=== PATIENT | male | born 1975 | race Caucasian/White ===

== ENCOUNTER 2021-11-21 15:41 | Emergency (ER) | payer MEDICAID ==
[~2021-11-21] VITALS: Ht 185.4 cm; Wt 100.7 kg
[2021-11-21] MEDS ORDERED: VENTOLIN HFA18 GM INH (18:05)
== END 2021-11-21 18:20 | disposition home or self-care (01) ==
LOC: ED 15:41
DX: U07.1 COVID-19 (principal); J20.5 Acute bronchitis due to respiratory syncytial virus
CPT/HCPCS: 71046; 94640; 94664; 99285-25; C9803; U0003

== ENCOUNTER 2022-01-30 15:15 | Emergency (ER) | payer MEDICAID ==
[~2022-01-30] VITALS: Ht 185.4 cm; Wt 100.7 kg
[~2022-01-30 15:15] MED LIST: VENTOLIN HFA18 GM INH
== END 2022-01-30 17:24 | disposition home or self-care (01) ==
LOC: ED 15:15
DX: M54.50 Low back pain, unspecified (principal)
CPT/HCPCS: 99283; A9270

== ENCOUNTER 2022-11-01 20:34 | Emergency (ER) | payer MEDICAID ==
[~2022-11-01] VITALS: Ht 185.4 cm; Wt 108.4 kg
== END 2022-11-01 22:02 | disposition home or self-care (01) ==
LOC: ED 20:34
DX: M25.562 Pain in left knee (principal); G89.29 Other chronic pain
CPT/HCPCS: 73560; 99283-25

== ENCOUNTER 2022-12-15 10:59 | Emergency (ER) | payer OTHER, MEDICAID ==
[~2022-12-15] VITALS: Ht 185.4 cm; Wt 108.4 kg
--- OUTSIDE RECORDS SUMMARY | 2022-12-15 11:08 | XMS ---
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 - Patient with suicidal and/or homicidal ideations eloped. - Patient eloped with IV in place. Details: Patient LWBS. CRITERIA MET - [facility] - 2 Visits in 30 Days CARE PROVIDERS MARIELY CHAN [facility] 09/11/2022-Current PHONE: Unknown Sugar has no Care Guidelines for this patient. Bi VISIT COUNT (12 MO.) [address] [place] [address] TOTAL 5 NOTE: Visits indicate total known visits. ED/UCC VISIT TRACKING (12 MO.) 12/15/2022 11:01 [facility] [place] TYPE: Emergency COMPLAINT: - POSS STROKE 11/18/2022 00:31 [facility] [place] TYPE: Emergency COMPLAINT: - SOB,COUGH,ABD PAIN DIAGNOSES: - Hemorrhage of anus and rectum - COVID-19 11/01/2022 20:34 [facility] [place] TYPE: Emergency COMPLAINT: - LT KNEE PAIN/NO INJ DIAGNOSES: - Other chronic pain - Pain in left knee 07/23/2022 17:40 [facility] [place] TYPE: Emergency COMPLAINT: - BACK PAIN 01/30/2022 15:15 [facility] [place] TYPE: Emergency COMPLAINT: - BACK PAIN DIAGNOSES: - Pain in thoracic spine - Low back pain, unspecified INPATIENT VISIT TRACKING (12 MO.) No inpatient visits to display in this time frame [id number]
== END 2022-12-15 13:05 | disposition home or self-care (01) ==
LOC: ED 10:59
DX: S83.92XA Sprain of unspecified site of left knee, initial encounter (principal); K92.2 Gastrointestinal hemorrhage, unspecified; R06.4 Hyperventilation; F41.9 Anxiety disorder, unspecified; W19.XXXA Unspecified fall, initial encounter
CPT/HCPCS: 36415; 70450; 73560; 80053; 85025; 99285-25

== ENCOUNTER 2023-10-08 00:33 | Emergency (ER) | payer OTHER ==
[~2023-10-08] VITALS: Ht 185.4 cm; Wt 114.7 kg
[2023-10-08] MEDS ORDERED: AMOX TR-K CLV1 EAC1 PO (01:12)
[2023-10-08 01:35] VITALS: BP 130/82
== END 2023-10-08 01:35 | disposition home or self-care (01) ==
LOC: ED 00:33
DX: K04.7 Periapical abscess without sinus (principal); K02.9 Dental caries, unspecified
CPT/HCPCS: A9270

== ENCOUNTER 2023-11-02 10:00 | Emergency (ER) | payer OTHER ==
[~2023-11-02] VITALS: Ht 185.4 cm; Wt 109.2 kg
[~2023-11-02 10:00] MED LIST changes: +AMOX TR-K CLV1 EAC1 PO
--- OUTSIDE RECORDS SUMMARY | 2023-11-02 10:03 | XMS ---
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 - Patient eloped before treatment completed. - Patient with suicidal and/or homicidal ideations eloped. Details: Patient LWBS. CRITERIA MET - [facility] - 2 Visits in 30 Days CARE PROVIDERS MARIELY CHAN [facility] 09/11/2023-Current PHONE: [phone] Sugar has no Care Guidelines for this patient. Bi VISIT COUNT (12 MO.) [address] [place] [address] TOTAL 4 NOTE: Visits indicate total known visits. ED/UCC VISIT TRACKING (12 MO.) 11/02/2023 10:02 [facility] [place] TYPE: Emergency COMPLAINT: - RECTAL ISSUE 10/08/2023 00:33 [facility] [place] TYPE: Emergency COMPLAINT: - DENTAL PAIN DIAGNOSES: - Dental caries, unspecified - Other specified disorders of teeth and supporting structures - Periapical abscess without sinus 12/15/2022 11:01 [facility] [place] TYPE: Emergency COMPLAINT: - POSS STROKE DIAGNOSES: - Anxiety disorder, unspecified - Gastrointestinal hemorrhage, unspecified - Hyperventilation - Pain in left knee - Sprain of unspecified site of left knee, initial encounter - Unspecified fall, initial encounter 11/18/2022 00:31 [facility] [place] TYPE: Emergency COMPLAINT: - SOB,COUGH,ABD PAIN DIAGNOSES: - COVID-19 - Hemorrhage of anus and rectum INPATIENT VISIT TRACKING (12 MO.) No inpatient visits to display in this time frame [email or web address]
[2023-11-02] MEDS ORDERED: MORPHINE SULFATE 4 MG/ML VIAL IV ONE (10:15)
[2023-11-02] MEDS ORDERED: ondansetron HCL 4 MG/2 ML VIAL IV ONE (10:15)
[2023-11-02] MEDS ORDERED: SODIUM CHLORIDE 0.9% 1,000 ML IV ONE (10:15)
[2023-11-02 10:33] LABS: EOSINOPHILS 3.4 % (0-6); HEMATOCRIT 42.6 % (35.0-50.0); HEMOGLOBIN 14.2 g/dL (12.0-18.0); LYMPHOCYTES 37.9 % (24-44); MCH 29.8 (27-36); MCHC 33.4 g/dl (30-36); MCV 89.2 fl (81-99); MONOCYTES 6.6 % (0-12); NEUTROPHILS 51.1 % (39-80); PLATELET COUNT 401 K/uL (140-440); RBC 4.77 M/ul (4.3-5.7); RDW 12.8 (10.5-15.0)
[2023-11-02 10:48] LABS: ALBUMIN 3.7 g/dL (3.4-5.0); ALBUMIN/GLOBULIN RATIO 0.97 (1.1-2.4); ANION GAP 10.1 (7-21); BILIRUBIN, TOTAL 0.2 ng/dL (0.2-1.0); BUN/CREATININE RATIO 10.46 (6.0-28.6); CALCIUM 9.1 mg/dL (8.5-10.1); CREATININE, SERUM 0.86 mg/dL (0.70-1.30); POTASSIUM 4.1 mmol/L (3.5-5.1); PROTEIN, TOTAL 7.5 g/dL (6.4-8.2)
[2023-11-02 10:49] LABS: BILIRUBIN, URINE NEGATIVE (negative); BLOOD/HGB, URINE NEGATIVE (Negative); KETONE, URINE NEGATIVE (Negative); LEUK ESTERASE, URINE NEGATIVE (negative); NITRITE, URINE NEGATIVE (negative); PH, URINE 7.5 (5-7)
[2023-11-02] MEDS ORDERED: FIBER500 MG PO (11:43)
[2023-11-02 12:00] VITALS: BP 120/78
== END 2023-11-02 12:00 | disposition home or self-care (01) ==
LOC: ED 10:00
PROVIDERS: Family Medicine
DX: K57.30 Diverticulosis of large intestine without perforation or abscess without bleeding (principal); K59.00 Constipation, unspecified; Z85.038 Personal history of other malignant neoplasm of large intestine; N40.0 Benign prostatic hyperplasia without lower urinary tract symptoms
CPT/HCPCS: 36415; 74177; 80053; 81003; 83690; 85025; 96375; 99284-25; J2270; J2405; J7030; Q9967

== ENCOUNTER 2023-12-19 00:55 | Emergency (ER) | payer SELFPAY ==
[~2023-12-19] VITALS: Ht 185.4 cm; Wt 107.0 kg
[~2023-12-19 00:55] MED LIST changes: +CELEBREX200 MG PO; +FIBER500 MG PO
--- OUTSIDE RECORDS SUMMARY | 2023-12-19 01:02 | XMS ---
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 - Patient eloped before treatment completed. - Patient with suicidal and/or homicidal ideations eloped. Details: Patient LWBS. CRITERIA MET - [facility] - 2 Visits in 30 Days CARE PROVIDERS There are no care providers on record at this time. Sugar has no Care Guidelines for this patient. E.Leatha. VISIT COUNT (12 MO.) 4 [facility]. TOTAL 4 NOTE: Visits indicate total known visits. ED/UCC VISIT TRACKING (12 MO.) 12/19/2023 00:55 [facility] [place] TYPE: Emergency COMPLAINT: - POST OP PROBLEM 12/14/2023 18:44 [facility] [place] TYPE: Emergency COMPLAINT: - LT LEG PAIN DIAGNOSES: - Other specified postprocedural states - Pain in left knee - Synovial cyst of popliteal space [Queen], left knee - Unilateral primary osteoarthritis, left knee 11/02/2023 10:02 [facility] [place] TYPE: Emergency COMPLAINT: - RECTAL ISSUE DIAGNOSES: - Benign prostatic hyperplasia without lower urinary tract symptoms - Constipation, unspecified - Diverticulosis of large intestine without perforation or abscess without bleeding - Generalized abdominal pain - Personal history of other malignant neoplasm of large intestine 10/08/2023 00:33 [facility] [place] TYPE: Emergency COMPLAINT: - DENTAL PAIN DIAGNOSES: - Dental caries, unspecified - Other specified disorders of teeth and supporting structures - Periapical abscess without sinus INPATIENT VISIT TRACKING (12 MO.) No inpatient visits to display in this time frame [id number]
== END 2023-12-19 01:23 | disposition home or self-care (01) ==
LOC: ED 00:55
DX: M25.562 Pain in left knee (principal); G89.29 Other chronic pain; Z02.79 Encounter for issue of other medical certificate
CPT/HCPCS: 99283

== ENCOUNTER 2024-08-14 18:40 | Emergency (ER) | payer MEDICARE ==
[~2024-08-14] VITALS: Ht 185.4 cm; Wt 105.9 kg
[2024-08-14 20:24] LABS: EOSINOPHILS 2.3 % (0-6); HEMATOCRIT 40.1 % (35.0-50.0); HEMOGLOBIN 13.6 g/dL (12.0-18.0); LYMPHOCYTES 18.2 % (24-44); MCH 30.7 (27-36); MCHC 33.9 g/dl (30-36); MCV 90.6 fl (81-99); MONOCYTES 4.4 % (0-12); NEUTROPHILS 73.1 % (39-80); PLATELET COUNT 364 K/uL (140-440); RBC 4.43 M/ul (4.3-5.7); RDW 12.7 (10.5-15.0)
[2024-08-14 20:43] LABS: ALBUMIN 3.5 g/dL (3.4-5.0); ALBUMIN/GLOBULIN RATIO 1.25 (1.1-2.4); ANION GAP 14.2 (7-21); BILIRUBIN, TOTAL 0.7 ng/dL (0.2-1.0); BUN/CREATININE RATIO 17.8 (6.0-28.6); CALCIUM 8.7 mg/dL (8.5-10.1); CREATININE, SERUM 0.73 mg/dL (0.70-1.30); MAGNESIUM 1.9 mg/dL (1.8-2.4); POTASSIUM 3.2 mmol/L (3.5-5.1); PROTEIN, TOTAL 6.3 g/dL (6.4-8.2)
[2024-08-14] MEDS ORDERED: POTASSIUM CHLORIDE 20 MEQ/15 ML CUP PO ONE (21:00)
[2024-08-14] MEDS ORDERED: CYCLOBENZAPRINE10 MG PO (21:01)
[2024-08-14] MEDS ORDERED: CYCLOBENZAPRINE HCL 10 MG HOME.PACK PO ONE (21:15)
[2024-08-14 21:41] VITALS: BP 133/92
== END 2024-08-14 21:42 | disposition home or self-care (01) ==
LOC: ED 18:40
PROVIDERS: Family Medicine
DX: R25.2 Cramp and spasm (principal)
CPT/HCPCS: 36415; 80053; 83735; 85025; 99283; A9270